=== PATIENT | male | born 1990 | race Caucasian/White ===

== ENCOUNTER 2024-07-15 09:06 | Emergency (ER) | payer OTHER, SELFPAY ==
[2024-07-15 09:10] VITALS: BP 147/88; PULSE 74; RESP 16; TEMP 36; O2SAT 96
--- NOTE | 2024-07-15 09:15 | DI.RAD_ITS ---
Exam(s) XR HUMERUS RT EXAM: XR HUMERUS RT CLINICAL HISTORY: Abscess, R/O air. TECHNIQUE: 2D digital imaging was performed. COMPARISON: No exams were available for comparison FINDINGS: Two views of the right humerus: No evidence of fracture or dislocation nor abnormal soft tissue calcifications. Subacromial space ap pears unremarkable. Bone density normal. No osseous lesions in the humerus. With respect of the soft tissues there is some edema over the lateral aspect of the arm. No soft tis abdi radiopaque foreign bodies. No gas in the soft tissues. IMPRESSION: No significant osseous findings in the right humerus. Soft tissue edema. No gas in the soft tissues. No radiopaque foreign body evident. DATA REPOSITORY: RADIATION DOSE DELIVERED:
--- NOTE | 2024-07-15 09:22 | ED.GENADUL_ITS ---
Discharge Plan Disposition Patient Disposition: Home Condition: Stable Discharge Details Clinical Impression: Cellulitis of arm, right Primary Care Provider: Unknown,Unknown ED Provider: Pamela Davila Home Meds and New Rx's Prescriptions: Continued acetaminophen 325 mg capsule 325 mg PO Q4H PRN buspirone 15 mg tablet 15 mg PO DAILY cetirizine [24Hour Allergy] 10 mg tablet 10 mg PO DAILY diclofenac sodium 1 % gel 2.25 inch topical QID PRN Rx Instructions: apply to single elbow, wrist or hand; for hand includes palm/fingers/back of hand duloxetine [Cymbalta] 30 mg capsule,delayed release(DR/EC) 30 mg PO DAILY ibuprofen [Advil] 200 mg tablet 200 mg PO Q6H PRN melatonin 3 mg capsule 3 mg PO HS PRN multivitamin Tablet 1 tab PO DAILY buprenorphine HCl 8 mg tablet, sublingual 8 mg sublingual DAILY sulfamethoxazole-trimethoprim [Bactrim DS] 800-160 mg tablet 1 tab PO QID Discharge Instructions Instructions: Cellulitis (Skin Infection), Adult ED Additional Instructions: Continue taking the Bactrim as previously prescribed. You were given additional clindamycin IM injection here in the department. There is no gas noted on x- ray. Please take Tylenol or Ibuprofen with food every 4-6 hours as needed for pain and swelling. Follow up with primary care provider in 3-5 days. Return to ED sooner if any worsening or concerns. Discharge Data Discharge Date/Time-TO BE ENTERED AT DEPARTURE: 07/15/24 11:42 HPI General Mode of arrival: ambulatory . Date/Time Provider Initiated Documentation: 07/15/24 09:17 . Limitations to Documentation: no limitations . Information obtained by: patient, police, RN notes reviewed and old records reviewed . HPI Narrative: 34 year old male presents to the ED accompanied by correctional facility staff with cc of Right upper arm infection. Patient reports had a new tattoo 1.5 weeks prior now with multiple areas of red, raised induration. Has been taking Bactrim for the last 2 days. He has 3 separate lesions. No drainage noted. Full range of motion noted to his arm. Related Data Home Medications ?Medication ?Instructions ?Recorded ?Confirmed acetaminophen 325 mg capsule 325 mg PO Q4H PRN 07/15/24 07/15/24 buprenorphine HCl 8 mg sublingual 8 mg sublingual DAILY 07/15/24 07/15/24 tablet buspirone 15 mg tablet 15 mg PO DAILY 07/15/24 07/15/24 cetirizine 10 mg tablet (24Hour 10 mg PO DAILY 07/15/24 07/15/24 Allergy) diclofenac sodium 1 % topical gel 2.25 inch topical QID PRN 07/15/24 07/15/24 duloxetine 30 mg capsule,delayed 30 mg PO DAILY 07/15/24 07/15/24 release (Cymbalta) ibuprofen 200 mg tablet (Advil) 200 mg PO Q6H PRN 07/15/24 07/15/24 melatonin 3 mg capsule 3 mg PO HS PRN 07/15/24 07/15/24 multivitamin 1 tab PO DAILY 07/15/24 07/15/24 sulfamethoxazole 800 1 tab PO QID 07/15/24 07/15/24 mg-trimethoprim 160 mg tablet (Bactrim DS) Allergies Allergy/AdvReac Type Severity Reaction Status Date / Time No Known Allergies Allergy Unverified 07/15/24 09:18 General Stated Complaint: Cellulitis JOELLE: 3 Review of Systems All systems reviewed & are unremarkable except as noted in HPI and below Integumentary/Breasts Skin/Breast: Reports as per HPI, Reports erythema, Reports skin swelling and Reports sores Exam Extrem Right upper extremity: shoulder/upper arm Details: tenderness, swelling and warmth Shoulder/upper arm images: 2 1. Red raised area with erythema, 2. Red raised area of erythema 3. Red raised area with central exoriation. Course Vital Signs Vital signs: Vital Signs Temperature 36.0 C L 07/15/24 09:10 Pulse 74 07/15/24 09:10 Respiratory Rate 16 07/15/24 09:10 Blood Pressure 147/88 H 07/15/24 09:10 Pulse Oximetry 96 07/15/24 09:10 Temperature 36.0 C L 07/15/24 09:10 Temperature Source Temporal Artery Scan 07/15/24 09:10 Pulse 74 07/15/24 09:10 Respiratory Rate 16 07/15/24 09:10 Blood Pressure 147/88 H 07/15/24 09:10 Blood Pressure Position Sitting 07/15/24 09:10 Pulse Oximetry 96 07/15/24 09:10 Pain Level 7 07/15/24 09:10 Medical Decision Making 34 year old male presents to the ED accompanied by correctional facility staff with cc of Right upper arm infection. Patient reports had a new tattoo 1.5 weeks prior now with multiple areas of red, raised induration. Has been taking Bactrim for the last 2 days. He has 3 separate lesions. No drainage noted. Full range of motion noted to his arm. Clindamycin 600 mg IM ordered, XR to rule out gas, wound culture ordered however lesions are not draining at this time. X-ray shows no subcutaneous emphysema. Will discharge patient with instructions to continue the Bactrim. This text was generated using [employer] system, please disregard any oddities of phrase or misspellings. Imaging Data Radiologic Study: Imaging: X-Ray Radiologist's impression: TECHNIQUE: Imaging protocol: Radiologic exam of the right humerus. Views: 2 or more views. COMPARISON: No relevant prior studies available. FINDINGS: Bones/joints: Normal. Soft tissues: Subcutaneous edema along the distal lateral aspect. No subcutaneous gas identified. IMPRESSION: Subcutaneous edema along the distal lateral aspect. No subcutaneous gas identified. Thank you for allowing us to participate in the care of your patient. Dictated and Authenticated by: Aslhey Rdz MD Quality:SDOH Health Related Social Needs: 2 No Data to Display PFSH All Active Problems (Updated 07/15/24 @ 11:05 by Pamela Davila NP) Cellulitis of arm, right (Acute) Social History Smoking risk assessment performed?: No Alcohol Intake: former Substance use type: former substance user
--- NOTE | 2024-07-15 10:36 | DI.VRAD_ITS ---
PROCEDURE INFORMATION: Exam: XR Right Humerus Exam date and time: 07/15/2024 10:24 AM Age: 34 years old Clinical indication: Other: Abscess, R/O air TECHNIQUE: Imaging protocol: Radiologic exam of the right humerus. Views: 2 or more views. COMPARISON: No relevant prior studies available. FINDINGS: Bones/joints: Normal. Soft tissues: Subcutaneous edema along the distal lateral aspect. No subcutaneous gas identified. IMPRESSION: Subcutaneous edema along the distal lateral aspect. No subcutaneous gas identified. Dictated and Authenticated by: Ashley Rdz MD. Ordering:SRAVAN Santiago MD
[2024-07-15 11:42] VITALS: BP 139/73; PULSE 67; RESP 18; O2SAT 95
== END 2024-07-15 11:42 | disposition home or self-care (01) ==
PROVIDERS: Emergency Provider Registered Nurse Emergency
DX: L03.113 Cellulitis of right upper limb (principal)
CPT/HCPCS: 96372; 99284; 73060; 87070; 99283; J0736

== ENCOUNTER 2024-08-12 15:38 | Emergency (ER) | payer OTHER, SELFPAY ==
[2024-08-12 15:42] VITALS: BP 118/78; PULSE 69; RESP 10; TEMP 36.5; O2SAT 94
[2024-08-12 15:53] VITALS: RESP 16
[2024-08-12] MEDS: Cephalexin 500 MG CAP PO (16:03)
--- NOTE | 2024-08-12 16:09 | W.ED.GENAD ---
Discharge Plan Disposition Patient Disposition: Home Condition: Stable Discharge Details Clinical Impression: Cellulitis and abscess of upper extremity Primary Care Provider: Unknown,Unknown ED Provider: Nishi Almendarez Home Meds and New Rx's Prescriptions: New cephalexin 500 mg capsule 500 mg PO QID 7 Days Qty: 28 0RF sulfamethoxazole-trimethoprim [Bactrim DS] 800-160 mg tablet 1 tab PO Q12H 7 Days Qty: 14 0RF No Action acetaminophen 325 mg capsule 325 mg PO Q4H PRN buspirone 15 mg tablet 15 mg PO DAILY cetirizine [24Hour Allergy] 10 mg tablet 10 mg PO DAILY diclofenac sodium 1 % gel 2.25 inch topical QID PRN Rx Instructions: apply to single elbow, wrist or hand; for hand includes palm/fingers/back of hand duloxetine [Cymbalta] 30 mg capsule,delayed release(DR/EC) 30 mg PO DAILY ibuprofen [Advil] 200 mg tablet 200 mg PO Q6H PRN melatonin 3 mg capsule 3 mg PO HS PRN multivitamin Tablet 1 tab PO DAILY buprenorphine HCl 8 mg tablet, sublingual 8 mg sublingual DAILY sulfamethoxazole-trimethoprim [Bactrim DS] 800-160 mg tablet 1 tab PO QID albuterol 90 mcg/actuation aerosol 90 mcg inhalation QID PRN PRN mupirocin 2 % ointment 1 applic topical BID chlorhexidine gluconate [Hibiclens] 4 % liquid 1 applic topical Q5M Nasal [place] (sodium chloride) 0.65 % aerosol,spray 2 spray intranasal BID PRN tamsulosin 0.4 mg capsule 0.4 mg PO DAILY Discharge Instructions Instructions: Abscess Incision and Drainage (DC) Additional Instructions: You were seen in the emergency department today for evaluation of an abscess with cellulitis. Your large abscess was drained and we have extended your course of antibiotics and added a second 1 to cover all of the common bacteria that live on the skin. I did send the pus for culture and you will be updated if you need to make any changes to your antibiotic course. Please monitor for worsening redness, fever or chills, and keep the area clean and dry. It is typical to have some drainage of blood and pus over the next day or so. Thank you for allowing us to be part of your care. HPI General Date/Time Provider Initiated Documentation: 08/12/24 15:41. HPI Narrative: HPI: This is a 34-year-old male patient, presenting for evaluation of an abscess on his right elbow. The patient reports that he has been struggling with a cellulitis of his right upper extremity for the last 3 weeks, after getting a new tattoo. He is currently incarcerated, has been on a course of Bactrim (which was transitioned to doxycycline, before being transition back to Bactrim) and has been taking this as prescribed with a plan for the course to end tomorrow. He has noted improvement in his lateral upper extremity cellulitis, but today noticed a new abscess on the lateral aspect of his right elbow. He reports that he has otherwise been in his normal state of health, with no fevers, chills, or other concerns for skin changes. He reports that he has not gotten any new tattoos, does not put anything in his body with needles, did have a prior wound culture concerning for MRSA. Exam: Gen: Awake and alert, in no apparent distress HEENT: Non-icteric sclera Neck: Supple Lungs: No apparent respiratory distress, normal respiratory effort. CV: Appears well perfused Abdomen: Non-distended MSK: Moves 4 extremities without apparent limitation in ROM Skin: Visualized skin without rashes, cyanosis. The patient has 2 small abscesses to the lateral right upper extremity, with minimal surrounding redness and induration, both of which are draining and less than 0.5 cm. There is a new abscess on the lateral aspect of the right elbow just superior to the joint, approximately 1.5 cm Neuro: Normal Gait, no obvious focal deficits or facial asymmetry. Speaks in full, clear sentences. With surrounding redness, induration, and warmth. Full range of motion of the joint without tenderness. This is a 34-year-old male patient presenting for evaluation of an abscess. My differential includes but is not limited to abscess, cellulitis, Psych: Appropriate for situation. MDM: Certainly considered bacterial resistant infection, no evidence on physical examination or vital check to suggest sepsis, bacteremia. No evidence of foreign body on the bedside ultrasound performed by myself, which does show fluid collection concerning for abscess. No evidence of vascular derangement or neurodeficits on physical examination. The patient has no physical exam evidence concerning for septic joint. ED Course: The abscess was drained as noted below, a sample of the purulent discharge was sent for culture. [id number] ultrasonography documented below. The patient tolerated the procedure well, received his first dose of Keflex here in the emergency department. I will extend his dose of Bactrim given the new abscess with purulence that likely represents MRSA. A new wound culture was sent. I will also add on Keflex given the surrounding site cellulitis. At this time, the patient has had a full medical evaluation and is safe for discharge to home. They are hemodynamically stable, ambulatory, and tolerating PO. They are understanding of the follow-up plan and return precautions. They left our facility without incident. Nishi Almendarez MD Related Data Home Medications ?Medication ?Instructions ?Recorded ?Confirmed acetaminophen 325 mg capsule 325 mg PO Q4H PRN 07/15/24 08/12/24 buprenorphine HCl 8 mg sublingual 8 mg sublingual DAILY 07/15/24 08/12/24 tablet buspirone 15 mg tablet 15 mg PO DAILY 07/15/24 08/12/24 cetirizine 10 mg tablet (24Hour 10 mg PO DAILY 07/15/24 08/12/24 Allergy) diclofenac sodium 1 % topical gel 2.25 inch topical QID PRN 07/15/24 08/12/24 duloxetine 30 mg capsule,delayed 30 mg PO DAILY 07/15/24 08/12/24 release (Cymbalta) ibuprofen 200 mg tablet (Advil) 200 mg PO Q6H PRN 07/15/24 08/12/24 melatonin 3 mg capsule 3 mg PO HS PRN 07/15/24 08/12/24 multivitamin 1 tab PO DAILY 07/15/24 08/12/24 sulfamethoxazole 800 1 tab PO QID 07/15/24 08/12/24 mg-trimethoprim 160 mg tablet (Bactrim DS) albuterol 90 mcg/actuation aerosol 90 mcg inhalation QID PRN PRN 08/12/24 08/12/24 inhaler cephalexin 500 mg capsule 500 mg PO QID 7 days #28 caps 08/12/24 chlorhexidine gluconate 4 % 1 applic topical Q5M 08/12/24 08/12/24 topical liquid (Hibiclens) mupirocin 2 % topical ointment 1 applic topical BID 08/12/24 08/12/24 sodium chloride 0.65 % nasal spray 2 spray intranasal BID PRN 08/12/24 08/12/24 aerosol (Nasal [place] (sodium chloride)) sulfamethoxazole 800 1 tab PO Q12H 7 days #14 tabs 08/12/24 mg-trimethoprim 160 mg tablet (Bactrim DS) tamsulosin 0.4 mg capsule 0.4 mg PO DAILY 08/12/24 08/12/24 Previous Rx's ?Medication ?Instructions ?Recorded cephalexin 500 mg capsule 500 mg PO QID 7 days #28 caps 08/12/24 sulfamethoxazole 800 1 tab PO Q12H 7 days #14 tabs 08/12/24 mg-trimethoprim 160 mg tablet (Bactrim DS) Allergies Allergy/AdvReac Type Severity Reaction Status Date / Time No Known Allergies Allergy Unverified 08/12/24 15:45 General Stated Complaint: GenMedical JOELLE: 3 Course Vital Signs Vital signs: Vital Signs Temperature 36.5 C 08/12/24 15:42 Pulse 69 08/12/24 15:42 Respiratory Rate 10 L 08/12/24 15:42 Blood Pressure 118/78 08/12/24 15:42 Pulse Oximetry 94 08/12/24 15:42 Temperature 36.5 C 08/12/24 15:42 Temperature Source Oral 08/12/24 15:42 Pulse 69 08/12/24 15:42 Respiratory Rate 16 08/12/24 15:53 Respiratory Effort Normal 08/12/24 15:53 Respiratory Depth Normal 08/12/24 15:53 Respiratory Pattern Normal 08/12/24 15:53 Blood Pressure 118/78 08/12/24 15:42 Pulse Oximetry 94 08/12/24 15:42 Oxygen Delivery Method Room Air 08/12/24 15:42 Oxygen Flow Rate 0 08/12/24 15:42 Pain Level 7 08/12/24 15:42 Comment given ibuprofen about 1520 08/12/24 15:42 Procedures Abscess I/D Site: Upper Extremity Side (if applicable): Right Sedation/analgesia: Other Local Anesthetic: Lidocaine 2% and With Epi Amount of anesthesia used (mL): 2 Technique: Incised with #11 Blade Amount of fluid expressed (mL): 2 Irrigation: No Packing used?: None Medical Decision Making Quality:SDOH Health Related Social Needs: No Data to Display PFSH All Active Problems (Updated 08/12/24 @ 16:11 by Nishi Almendarez MD) Cellulitis and abscess of upper extremity (Acute) Cellulitis of arm, right (Acute) Social History Smoking risk assessment performed?: No Alcohol Intake: former Substance use type: former substance user POCUS Exam (ED) Limited Soft Tissue Exam DATE OF EXAM: 08/12/24 TIME OF EXAM: 16:10 PROVIDER THAT PERFORMED THE STUDY: Nishi Almendarez IS THIS A REPEAT EXAM DURING THIS ENCOUNTER: No LOCATION OF EXAM: Upper extremity/right REASON FOR EXAM: Abscess, Pain, Redness and Swelling VISUALIZED STRUCTURES: Skin and Subcutaneous tissue PERTINENT FINDINGS/IMPRESSION: Abscess Lateral R. elbow and Cellulitis Lateral R. elbow . Exam Complete
[2024-08-12 16:36] VITALS: BP 118/78; PULSE 69; RESP 16; TEMP 36.5; O2SAT 94
[2024-08-12 16:38] VITALS: BP 118/78; PULSE 69; RESP 16; TEMP 36.5; O2SAT 94
[2024-08-12] MEDS: Lidocaine 2% Pres-Free W/EPI 1/200,000 20 ML VIAL (16:38)
--- NOTE | 2024-08-13 14:51 | NUR.NOTE ---
Accessed PT chart to see if Pt was prescribed antibiotics for the speciman report. He was.
--- NOTE | 2024-08-14 14:09 | ED.FU.B_ITS ---
Date of service: 08/14/24 Time of Service: 14:10 Follow Up Plan: I followed up on this patient's lab results on my shift. Patient had had a recent upper extremity abscess drained. His abscess culture was growing resistance MRSA. He had been discharged on cephalexin and trimethoprim sulfa was oxazole. His MRSA was resistant to trimethoprim/sulfamethoxazole and sensitive to vancomycin, daptomycin, linezolid, and gentamicin. I called the nurse at the [facility]. She reported that she had been seeing the patient regularly. She reported that his wounds were looking improved. Given resistance will change patient's coverage to linezolid 600 mg every 12 for 7 days. I advised nurse at the facility to have the patient return to the emergency department if you develop fevers worsening pain or streaking signs of infection.
== END 2024-08-12 16:39 | disposition home or self-care (01) ==
PROVIDERS: Emergency Provider Emergency Medicine
DX: L02.411 Cutaneous abscess of right axilla (principal); L03.113 Cellulitis of right upper limb
CPT/HCPCS: 10060; 76882; 87077; 99284; 87070; 87186; 87205; 99283